=== PATIENT | female | born 1935 | race Caucasian/White ===

== ENCOUNTER → 2017-08-28 | Outpatient (CLI) | payer MEDICARE, OTHER ==
[2017-04-30 10:28] VITALS: BMI 21.2
[~2017-08-28] MED LIST: ACE325 PO; ACET-2031 PO; ACET-2708 PO; AMOX-556 PO; ASCO-599 PO; ASPE325 PO; ASPI-719 PO; ASPI-816 PO; ASPI325T22 PO; ASPI81TA94 PO; ATOR10TA65 PO; ATR10 PO; BETA1TAB44 PO; CALC1CAP19 PO; CALC500T76 PO; CHOL100062 PO; CLAR-1 PO; DIPH0.5D12 IM; DYA PO; ENA10 PO; ENAL-128 PO; ENOX150D3 SQ; ENOX60DI10 SQ; ESOM20CA31 PO; FAMO-67 PO; FAMO20TA9 PO; FISH OIL1 CAP PO; FLU IM; FLU180SY9 IM; GABA-490; GABA-490 PO; GABA-547 PO; GING250C3 PO; GLUC100026 PO; GLUC500C29 PO; GRAP50CA PO; IBUP-1618 PO; LEVO-85 PO; LISI-362 PO; LISI5TAB25 PO; LOR5/325 PO; MAXIDE; MELO-207 PO; MET500 PO; METO-253 PO; METO25TA93 PO; METR-1 PO; METXR500 PO; MULT-1156 PO; MULT1CAP59 PO; NIA100 PO; NIT100 PO; OMEG500C7 PO; OND4 PO; ONDA-2 PO; ONDA4TAB PO; PAN40 PO; PANT40TA65 PO; PNEU0.5D3 IM; PRO25 PO; RANI-324 PO; SCOP1PAT TD; SENN-284 PO; SUCR1TAB85 PO; SULF473O PO; TICA90TA PO; VIT D; WARF-18 PO; WARF10TA29 PO; [UNRECOGNIZED DRUG - OTHER] PO; [UNRECOGNIZED DRUG - OTHER] PO; b complex; calcium; fish oil; mvi; vit C
== END ==
LOC: LAB 12:28
PROVIDERS: ATTEND Internal Medicine
DX: E11.9 Type 2 diabetes mellitus without complications (principal); M85.80 Other specified disorders of bone density and structure, unspecified site; I10 Essential (primary) hypertension
CPT/HCPCS: 36415; 82040; 82247; 82310; 82374; 82435; 82565; 82947; 83036; 84075; 84132; 84155; 84295; 84450; 84460; 84520

== ENCOUNTER → 2017-09-17 | Outpatient (CLI) | payer MEDICARE, OTHER ==
[2017-04-30 10:28] VITALS: BMI 21.2
--- NOTE | 2017-09-17 14:16 | RADIOLOGY IMAGING REPORT ---
[place] [facility] [place] NAME: Jasmin Carreno : 1935 MR: [id number] V: [id number] EXAM DATE: ORDERING PHYSICIAN: MALINI BARRERA TECHNOLOGIST: Location: [facility] Patient: Jasmin Carreno : 1935 Visit/Account:[id number] Date of Sevice: 09/17/2017 BONE MINERAL DENSITY HISTORY: osteopenia, post menopausaul COMPARISON: DEXA examination from 10/05/2012 FINDINGS: LUMBAR SPINE: Bone mineral density (BMD) measured from L1-L4 correlates with a Z-score of -0.7 and a T-score of -2. 9 which is osteoporosis as defined by the World Health Organization. The corresponding risk of fract ure in the lumbar spine is 6-8 times compared with a young adult reference population. This value france s decreased by 8.9% since the prior study. More than 5% change is considered significant. HIP: Bone mineral density (BMD) measured in the left total hip region correlates with a Z-score of 0.0 and a T-score of -2.4 which is osteopenia as defined by the World Health Organization. The correspondin g risk of fracture in the hip is 4-6 times compared with a young adult reference population. This va lue has decreased by 17% since the prior study. More than 5% change is considered significant. Bone mineral density (BMD) measured in the left Femoral Neck region measures 0.796 g/cm2. Correspond ing T score is -1.7, osteopenia IMPRESSION: 1. Lumbar spine: Osteoporosis. There has been significant interval decrease in the bone mineral de nsity since the previous exam. 2. Left Total Hip: Osteopenia. There has been significant interval decrease in the bone mineral de nsity since the previous exam. 3. Left Femoral Neck: Bone Mineral Density is 0.796 g/cm2. Osteopenia The next DEXA scan of this patient should include the following sites: L1-L4 and left hip. FRAX? WHO Fracture Risk Assessment Tool link: <http://www.shef.ac.uk/FRAX/tool.jsp?[email or web address]> PLEASE NOTE: 1) The World Health Organization defines low BMD as follows: T-score Normal > -1 Osteopenia < -1 and > -2.5 Osteoporosis < -2.5 without fractures Established osteoporosis < -2.5 with fractures 2) In general, you may wish to consider: Diagnosis Treatment Follow-up DEXA Normal BMD Prevention 2-3 years Osteopenia Prevention/therapy 1-2 years Osteoporosis Therapy Yearly 3) Fracture risk estimated from the T-score is more accurate for vertebral fractures (often spontane ous) than for hip fractures. Report Dictated By: Dhruv Hopkins MD at 09/17/2017 2:10 PM Report E-Signed By: Dhruv Hopkins MD at 09/17/2017 2:12 PM WSN:[id number]
== END ==
LOC: RAD 07:12
PROVIDERS: ATTEND Internal Medicine
DX: M81.0 Age-related osteoporosis without current pathological fracture (principal); M85.88 Other specified disorders of bone density and structure, other site; Z78.0 Asymptomatic menopausal state
CPT/HCPCS: 77080

== ENCOUNTER 2017-12-20 08:38 | Emergency (ER) | payer MEDICARE, OTHER ==
[2017-04-30 10:28] VITALS: Wt 53.5 kg
[~2017-12-20 08:38] MED LIST changes: -ASPI-816 PO; +ASPI-870 PO; -RANI-324 PO; +RANI-366 PO; -WARF-18 PO; +WARF5TAB23 PO
--- NOTE | 2017-12-20 08:45 | ER Report ---
History and Physical Time Seen By MD: 08:44 HPI/ROS CHIEF COMPLAINT: Vomiting HISTORY OF PRESENT ILLNESS: Patient is an 82-year-old female who reports having nausea with episodes of vomiting over the past week. She denies any abdominal pain. She does report to the epigastric region however and states that "something is wrong". She further admits to having a lot of belching and she did report a dark chocolate stool yesterday morning. Today she metastases to having some bright red blood per rectum and admits having history of hemorrhoids. She admits to a decreased appetite secondary to nausea. She denies any fevers or chills. She denies chest pain or shortness of breath. She denies any urinary burning or hematuria. She denies urinary frequency. Patient does have a prior history of abdominal surgeries which include a hiatal hernia repair as well as a transvaginal hysterectomy. REVIEW OF SYSTEMS: Constitutional: No fever, no chills. Eyes: No discharge. ENT: No sore throat. Cardiovascular: No chest pain, no palpitations. Respiratory: No cough, no shortness of breath. Gastrointestinal: Nausea with vomiting no appreciable abdominal pain Genitourinary: No hematuria. Musculoskeletal: No back pain. Skin: No rashes. Neurological: No headache. Allergies: Coded Allergies: Cephalexin Monohydrate (Verified Allergy, Unknown, VOMITTING HEADACHE, 12/20) Home Meds Active Scripts Ondansetron Hcl (ZOFRAN) 4 Mg Tablet, 4 MG PO Q8H for Nausea, #15 TAB 0 Refills Prov:QUE LANGE MD 12/20/17 Warfarin Sodium (WARFARIN SODIUM) 5 Mg Tablet, 1-1.5 TAB PO QDAY, #135 TAB 3 Refills 5 mg T, Th, S, S, and 7.5 mg M, W, F, or as directed based on INR. Prov:MALINI BARRERA MD 08/28/17 Reported Medications Metoprolol Succinate (METOPROLOL SUCCINATE) 50 Mg Tab.er.24h, 1 TAB PO QDAY, TAB 12/20/17 Lisinopril (LISINOPRIL) 10 Mg Tablet, 1 TAB PO QDAY, TAB 08/28/17 Ranitidine Hcl (ZANTAC) 150 Mg Tablet, 1 TAB PO QDAY, TAB 08/27/16 Beta-Carotene(A) W-C & E/Min (VISION VITAMINS) 1 Each Tablet, 1 TAB PO QDAY 01/19/14 Discontinued Reported Medications Pantoprazole Sodium (PANTOPRAZOLE SODIUM) 40 Mg Tablet.dr, 1 TAB PO QDAY 04/29/17 Discontinued Scripts Metoprolol Tartrate (METOPROLOL TARTRATE) 25 Mg Tablet, 1 TAB PO BID, #60 TAB 6 Refills Prov:MALINI BARRERA MD 09/22/17 Past Medical/Surgical History Past medical history for macular degeneration, history of retinal detachment, history of coronary artery disease with MA in March 2014. Patient had stent to the LAD that was performed in [place]. Past medical history for hypertension, history of pulmonary embolism, history of gastroesophageal reflux disease, history of peptic ulcer disease, history of back pain and arthritis. History of type II diabetes. Hx Smoking: No Smoking Status: Never Smoker Exposure to Second Hand Smoke?: Yes Hx Substance Use Disorder: No Hx Alcohol Use: No Constitutional Vital Sign - Last 24 Hours 12/20/17 12/20/17 12/20/17 12/20/17 08:38 08:44 08:44 09:01 Temp 98.7 Pulse ??? 106 Resp 19 B/P (MAP) 168/107 168/107 (127) 125/72 (89) Pulse Ox 90 O2 Delivery Room Air 12/20/17 12/20/17 12/20/17 12/20/17 09:08 09:30 09:38 10:00 Pulse 89 78 Resp 12 19 B/P (MAP) 153/75 (101) 149/79 (102) Pulse Ox 92 94 12/20/17 12/20/17 12/20/17 12/20/17 10:08 10:30 10:35 11:00 Pulse 83 85 Resp 11 12 B/P (MAP) 141/101 (114) 101/60 (74) Pulse Ox 94 94 12/20/17 12/20/17 12/20/17 12/20/17 11:05 11:30 11:40 12:00 Pulse 80 80 Resp 6 11 B/P (MAP) 115/82 (93) 136/84 (101) Pulse Ox 91 93 12/20/17 12/20/17 12/20/17 12/20/17 12:10 12:15 12:30 12:36 Pulse 82 Resp 10 23 B/P (MAP) 140/93 (109) 136/88 (104) Pulse Ox 94 93 Physical Exam General Appearance: The patient is alert, has no immediate need for airway protection and no signs of toxicity. Eyes: Pupils equal and round no pallor or injection. No jaundice noted ENT, Mouth: Mucous membranes are moist. Patient is edentulous Respiratory: There are no retractions, lungs are clear to auscultation. Cardiovascular: Regular rate and rhythm. Gastrointestinal: Abdomen is soft and non tender, no masses, bowel sounds normal. Neurological: Awake alert Skin: Warm and dry, no rashes. Musculoskeletal: Neck is supple non tender. Extremities are nontender, nonswollen and have full range of motion. Medical Decision Making Data Points Result Diagram: 12/20/17 0912/20/17 09 Laboratory Hematology Test 12/20/17 00:00 12/20/17 09:06 12/20/17 09:42 12/20/17 10:02 Prothrombin Time 18.1 seconds (12.0-14.4) Prothromb Time International Ratio 1.47 Activated Partial Thromboplast Time 26 seconds (23-35) Red Blood Count 5.32 M/uL (4.17-5.56) Mean Corpuscular Volume 91.0 fL (80.0-96.0) Mean Corpuscular Hemoglobin 31.2 pg (26.0-33.0) Mean Corpuscular Hemoglobin Concent 34.2 g/dL (32.0-36.0) Red Cell Distribution Width 14.3 % (11.5-14.5) Mean Platelet Volume 7.2 fL (7.2-11.1) Neutrophils (%) (Auto) 73.2 % (39.4-72.5) Lymphocytes (%) (Auto) 18.3 % (17.6-49.6) Monocytes (%) (Auto) 7.3 % (4.1-12.4) Eosinophils (%) (Auto) 0.8 % (0.4-6.7) Basophils (%) (Auto) 0.4 % (0.3-1.4) Nucleated RBC Relative Count (auto) 0.0 /100WBC Neutrophils # (Auto) 6.2 K/uL (2.0-7.4) Lymphocytes # (Auto) 1.6 K/uL (1.3-3.6) Monocytes # (Auto) 0.6 K/uL (0.3-1.0) Eosinophils # (Auto) 0.1 K/uL (0.0-0.5) Basophils # (Auto) 0.0 K/uL (0.0-0.1) Nucleated RBC Absolute Count (auto) 0.00 K/uL Sodium Level 140 mmol/L (137-145) Potassium Level 4.0 mmol/L (3.5-5.0) Chloride Level 102 mmol/L (98-107) Carbon Dioxide Level 22 mmol/L (22-31) Blood Urea Nitrogen 22 mg/dl (7-18) Creatinine 1.00 mg/dl (0.52-1.04) Glomerular Filtration Rate Calc 53.0 Random Glucose 151 mg/dl (75-110) Calcium Level 10.0 mg/dl (8.4-10.2) Total Bilirubin 0.6 mg/dl (0.2-1.3) Aspartate Amino Transf (AST/SGOT) 24 U/L (0-35) Alanine Aminotransferase (ALT/SGPT) 23 U/L (0-56) Alkaline Phosphatase 75 U/L (0-126) Total Protein 7.0 gm/dl (6.3-8.2) Albumin 3.9 g/dl (3.5-5.0) Lipase 107 U/L (23-300) Helicobacter pylori IgG Antibody Negative (NEGATIVE) Stool Occult Blood (IFOB) Positive (NEGATIVE) Urine Color Yellow Urine Clarity Clear Urine pH 5.0 pH (4.8-9.5) Urine Specific [place] 1.039 Urine Protein 30 mg/dL (NEGATIVE) Urine Glucose (UA) Negative mg/dL (NEGATIVE) Urine Ketones 20 mg/dL (NEGATIVE) Urine Blood Negative (NEGATIVE) Urine Nitrite Negative (NEGATIVE) Urine Bilirubin Negative (NEGATIVE) Urine Urobilinogen Negative mg/dL (0.2-1.9) Urine Leukocyte Esterase Negative (NEGATIVE) Urine RBC None /HPF (0-2/HPF) Urine WBC <1 /HPF (0-5/HPF) Urine Squamous Epithelial Cells None /LPF (NONE-FEW) Urine Bacteria Negative /HPF (NONE-FEW) Urine Mucus Few /HPF (NONE-FEW) Test 12/20/17 12:00 Troponin I 0.044 ng/ml Chemistry Test 12/20/17 00:00 12/20/17 09:06 12/20/17 09:42 12/20/17 10:02 Prothrombin Time 18.1 seconds (12.0-14.4) Prothromb Time International Ratio 1.47 Activated Partial Thromboplast Time 26 seconds (23-35) White Blood Count 8.5 k/uL (4.5-11.0) Red Blood Count 5.32 M/uL (4.17-5.56) Hemoglobin 16.6 g/dL (12.0-16.0) Hematocrit 48.5 % (34.0-47.0) Mean Corpuscular Volume 91.0 fL (80.0-96.0) Mean Corpuscular Hemoglobin 31.2 pg (26.0-33.0) Mean Corpuscular Hemoglobin Concent 34.2 g/dL (32.0-36.0) Red Cell Distribution Width 14.3 % (11.5-14.5) Platelet Count 327 K/uL (150-450) Mean Platelet Volume 7.2 fL (7.2-11.1) Neutrophils (%) (Auto) 73.2 % (39.4-72.5) Lymphocytes (%) (Auto) 18.3 % (17.6-49.6) Monocytes (%) (Auto) 7.3 % (4.1-12.4) Eosinophils (%) (Auto) 0.8 % (0.4-6.7) Basophils (%) (Auto) 0.4 % (0.3-1.4) Nucleated RBC Relative Count (auto) 0.0 /100WBC Neutrophils # (Auto) 6.2 K/uL (2.0-7.4) Lymphocytes # (Auto) 1.6 K/uL (1.3-3.6) Monocytes # (Auto) 0.6 K/uL (0.3-1.0) Eosinophils # (Auto) 0.1 K/uL (0.0-0.5) Basophils # (Auto) 0.0 K/uL (0.0-0.1) Nucleated RBC Absolute Count (auto) 0.00 K/uL Glomerular Filtration Rate Calc 53.0 Calcium Level 10.0 mg/dl (8.4-10.2) Total Bilirubin 0.6 mg/dl (0.2-1.3) Aspartate Amino Transf (AST/SGOT) 24 U/L (0-35) Alanine Aminotransferase (ALT/SGPT) 23 U/L (0-56) Alkaline Phosphatase 75 U/L (0-126) Total Protein 7.0 gm/dl (6.3-8.2) Albumin 3.9 g/dl (3.5-5.0) Lipase 107 U/L (23-300) Helicobacter pylori IgG Antibody Negative (NEGATIVE) Stool Occult Blood (IFOB) Positive (NEGATIVE) Urine Color Yellow Urine Clarity Clear Urine pH 5.0 pH (4.8-9.5) Urine Specific [place] 1.039 Urine Protein 30 mg/dL (NEGATIVE) Urine Glucose (UA) Negative mg/dL (NEGATIVE) Urine Ketones 20 mg/dL (NEGATIVE) Urine Blood Negative (NEGATIVE) Urine Nitrite Negative (NEGATIVE) Urine Bilirubin Negative (NEGATIVE) Urine Urobilinogen Negative mg/dL (0.2-1.9) Urine Leukocyte Esterase Negative (NEGATIVE) Urine RBC None /HPF (0-2/HPF) Urine WBC <1 /HPF (0-5/HPF) Urine Squamous Epithelial Cells None /LPF (NONE-FEW) Urine Bacteria Negative /HPF (NONE-FEW) Urine Mucus Few /HPF (NONE-FEW) Test 12/20/17 12:00 Troponin I 0.044 ng/ml Coagulation Test 12/20/17 00:00 Prothrombin Time 18.1 seconds Prothromb Time International Ratio 1.47 Activated Partial Thromboplast Time 26 seconds Urinalysis Test 12/20/17 10:02 Urine Color Yellow Urine Clarity Clear Urine pH 5.0 pH (4.8-9.5) Urine Specific [place] 1.039 Urine Protein 30 mg/dL (NEGATIVE) Urine Glucose (UA) Negative mg/dL (NEGATIVE) Urine Ketones 20 mg/dL (NEGATIVE) Urine Blood Negative (NEGATIVE) Urine Nitrite Negative (NEGATIVE) Urine Bilirubin Negative (NEGATIVE) Urine Urobilinogen Negative mg/dL (0.2-1.9) Urine Leukocyte Esterase Negative (NEGATIVE) Urine RBC None /HPF (0-2/HPF) Urine WBC <1 /HPF (0-5/HPF) Urine Squamous Epithelial Cells None /LPF (NONE-FEW) Urine Bacteria Negative /HPF (NONE-FEW) Urine Mucus Few /HPF (NONE-FEW) Microbiology Microbiology Date/Time Source Procedure Growth Status 12/20/17 10:02 Cath Urine Urine Culture - Preliminary NO GROWTH AFTER 1 DAY, REINCUBATED Resulted EKG/Imaging EKG Interpretation EKG shows normal sinus rhythm with left axis deviation. There is prior Q waves in leads 3 and aVF which corresponded to an old inferior wall MA. Monitor Interpretation: Normal Sinus Rhythm Imaging FACILITY: [facility] - [place] PATIENT NAME: Jasmin Carreno : 1935 MR: [id number] V: [id number] EXAM DATE: [id number] ORDERING PHYSICIAN: QUE LANGE TECHNOLOGIST: Location[place] [facility] [place] Patient: Jasmin Carreno : 1935 Visit/Account:[id number] Date of Sevice: 12/20/2017 ABDOMEN/PELVIS WITH CONTRAST HISTORY: Vomiting. Not feeling well. TECHNIQUE: CT abdomen and pelvis with intravenous contrast. One of the following dose optimization techniques was utilized in the performance of this exam: Automated exposure control; adjustment of the mA and/ or kV according to the patient's size; or use of an iterative reconstruction technique. Specific details can be referenced in the facility's radiology CT exam operational policy. CONTRAST: 75 mL Isovue-370. COMPARISON: CT chest dated April 29, 2017. FINDINGS: Visualized lung bases: Mild linear scarring within the right lung base. Small hiatal hernia. There is fluid within a patulous distal esophagus. Hepatobiliary: Gallbladder surgically absent. Otherwise negative. Spleen: Negative. Adrenals: Negative. Pancreas: Negative. Kidneys/: Uterus is surgically absent. Otherwise negative. GI: Moderate to advanced descending and sigmoid colon diverticulosis without evidence for diverticulitis. There is advanced diverticulosis within the proximal jejunum with small moderate volume adjacent free air (coronal image 4) . Extending superiorly below the diaphragms. No visualized associated wall thickening or infiltration. Postsurgical changes near the GE junction with recurrent hiatal hernia. Otherwise negative. Appendix is unremarkable. Vessels/spaces/nodes: Mild/moderate volume ascites. Free air, as above. Bones/soft tissues: Degenerative changes within the spine. There is approximately 7 mm anterolisthesis of L4 on L5 IMPRESSION: 1. Pneumoperitoneum which appears to be related to diverticular disease within the proximal small bowel. There is no wall thickening or adjacent inflammatory changes to suggest perforated diverticulitis. No additional potential cause of the pneumoperitoneum is identified. 2. Recurrent small hiatal hernia with fluid and a patulous distal visualized esophagus. 3. Additional incidental/chronic findings, as above. Results were discussed with QUE LANGE at 12/20/2017 10:22 AM. Report Dictated By: Jon Pereira MD at 12/20/2017 10:15 AM Report E-Signed By: Jon Pereira MD at 12/20/2017 10:26 AM WSN:[id number] ED Course/Re-evaluation Clinical Indication for ER IV: Hydration, IV Access ED Course 12/20/2017 11:02:[address] results as well as history, physical exam all pertinent lab data were discussed with the on-call surgeon ; he is aware of the area of pneumoperitoneum seen on CT scan. According to the radiologist there is a CT scan of the abdomen and pelvis from 2013 which showed "free air" but he is unable to visualize the images of the study to compare. Further accordingly on the CT scan there is no other evidence of inflammation to suggest ruptured diverticulitis. Patient's physical exam is completely benign and she has actually no abdominal pain and a normal white count. This was all discussed with , and it is his opinion that this a benign finding at this time. He recommends that the patient follow-up with him this Friday for gastric scope. This was all discussed with the patient who currently feels improved after having some vomiting. She continues to have 0 abdominal pain, with stable vital signs. Her troponin was in the lower end of the indeterminate range so we will be repeating a 3 hour troponin at noon. If all this is normal we will discharge the patient home ensuring that she is on a proton pump inhibitor. Patient and daughter were updated no questions or concerns at this time. Re-evaluation 12/20/2017 12:32:29 pm patient feeling improved. Repeat troponin is unchanged. Plan will be discharge home at this time Decision to Disposition Date: December 20, 2017 Decision to Disposition Time: 12:32 Depart Departure Latest Vital Signs Vital Signs Date Time Temp Pulse Resp B/P (MAP) Pulse Ox O2 Delivery O2 Flow Rate FiO2 12/20/17 12:36 136/88 (104) 12/20/17 12:15 23 93 12/20/17 12:10 82 5/5/18 08:44 98.7 Room Air Impression: Primary Impression: Vomiting Condition: Improved Disposition: HOME OR SELF-CARE Referrals: MALINI BARRERA MD (PCP) MANDA ALDANA MD Call the office of Friday for same-day appointment for further evaluation of your vomiting. New Scripts Ondansetron Hcl (ZOFRAN) 4 Mg Tablet 4 MG PO Q8H for Nausea, #15 TAB 0 Refills Prov: QUE LANGE MD 12/20/17 Patient Instructions: Acute Nausea and Vomiting (ED) Additional Instructions: You should schedule a follow-up appointment on Friday with Dr. Aldana by calling 1st thing Friday. Your provided with his contact information. If at any time your symptoms worsen you should return immediately to the emergency department for further evaluation. Problem Qualifiers Primary Impression: Vomiting Vomiting type: unspecified Vomiting Intractability: non-intractable Nausea presence: with nausea Qualified Codes: R11.2 - Nausea with vomiting, unspecified QUE LANGE MD December 20, 2017 08:45
[2017-12-20] MEDS ORDERED: NS(*) 0.9% 500 ML BAG 500 ML IV ONE (08:57)
[2017-12-20] MEDS ORDERED: ONDANSETRON 4 MG/2 ML VIAL IVP ONE ×2 (09:00→12:25)
[2017-12-20] MEDS ORDERED: IOPAMIDOL 76% 75 ML INFUS BTL 75 ML ONE (09:12)
[2017-12-20] MEDS ORDERED: METO50TA19 PO (09:13)
[2017-12-20] MEDS ORDERED: NS 0.9% 150 ML BAG 150 ML ONE (09:13)
[2017-12-20 09:16] LABS: PLATELET COUNT, AUTOMATED 327 K/uL (150-450)
--- NOTE | 2017-12-20 09:23 | EKG ---
FACILITY: [facility] PATIENT NAME: DONAL IBANEZ : [id number] MR: [id number] V: [id number] EXAM DATE: ORDERING PHYSICIAN: QUE LANGE TECHNOLOGIST: SHABNAM Test Reason : NAUSEA Blood Pressure : / mmHG Vent. Rate : 085 BPM Atrial Rate : 085 BPM P-R Int : 168 ms QRS Dur : 072 ms QT Int : 384 ms P-R-T Axes : 026 -55 011 degrees QTc Int : 456 ms Sinus rhythm Left axis deviation Decreased R wave progression Possible previous inferior infarct Abnormal ECG Confirmed by MARTY WOODS ([id number]) on 12/20/2017 2:03:15 PM Referred By: YEIMI Confirmed By:MARTY WOODS
[2017-12-20] MEDS ORDERED: FAMOTIDINE(*) 20MG/50ML PREMIX 50 ML IVPB ONE (09:35)
[2017-12-20 09:36] LABS: INR 1.47
--- NOTE | 2017-12-20 10:29 | RADIOLOGY IMAGING REPORT ---
FACILITY: [facility] - [place] PATIENT NAME: Jasmin Carreno : 1935 MR: [id number] V: [id number] EXAM DATE: ORDERING PHYSICIAN: QUE LANGE TECHNOLOGIST: Location: [facility] [place] Patient: Jasmin Carreno : 1935 Visit/Account:[id number] Date of Sevice: 12/20/2017 ABDOMEN/PELVIS WITH CONTRAST HISTORY: Vomiting. Not feeling well. TECHNIQUE: CT abdomen and pelvis with intravenous contrast. One of the following dose optimization techniques was utilized in the performance of this exam: Autom ated exposure control; adjustment of the mA and/or kV according to the patient's size; or use of an i terative reconstruction technique. Specific details can be referenced in the facility's radiology C T exam operational policy. CONTRAST: 75 mL Isovue-370. COMPARISON: CT chest dated April 29, 2017. FINDINGS: Visualized lung bases: Mild linear scarring within the right lung base. Small hiatal hernia. There is fluid within a patulous distal esophagus. Hepatobiliary: Gallbladder surgically absent. Otherwise negative. Spleen: Negative. Adrenals: Negative. Pancreas: Negative. Kidneys/: Uterus is surgically absent. Otherwise negative. GI: Moderate to advanced descending and sigmoid colon diverticulosis without evidence for diverticul itis. There is advanced diverticulosis within the proximal jejunum with small moderate volume adjacen t free air (coronal image 4). Extending superiorly below the diaphragms. No visualized associated wal l thickening or infiltration. Postsurgical changes near the GE junction with recurrent hiatal hernia. Otherwise negative. Appendix is unremarkable. Vessels/spaces/nodes: Mild/moderate volume ascites. Free air, as above. Bones/soft tissues: Degenerative changes within the spine. There is approximately 7 mm anterolisthes is of L4 on L5 IMPRESSION: 1. Pneumoperitoneum which appears to be related to diverticular disease within the proximal small bow el. There is no wall thickening or adjacent inflammatory changes to suggest perforated diverticulitis . No additional potential cause of the pneumoperitoneum is identified. 2. Recurrent small hiatal hernia with fluid and a patulous distal visualized esophagus. 3. Additional incidental/chronic findings, as above. Results were discussed with QUE LANGE at 12/20/2017 10:22 AM. Report Dictated By: Jon Pereira MD at 12/20/2017 10:15 AM Report E-Signed By: Jon Pereira MD at 12/20/2017 10:26 AM WSN:[id number]
[2017-12-20] MEDS ORDERED: ONDA4TAB97 PO (12:33)
[2017-12-20 12:36] VITALS: BP 136/88
[2017-12-22] MEDS ORDERED: [UNRECOGNIZED DRUG - CODE] PO (16:57)
== END 2017-12-20 12:44 | disposition home or self-care (01) ==
LOC: ER 08:47
DX: R11.2 Nausea with vomiting, unspecified (principal)
CPT/HCPCS: 36415; 74177; 81001; 82274; 83690; 84484; 85025; 85610; 85730; 86677; 86850; 86900; 86901; 87088; 93005; 96361; 96365; 96375; 96376; 99284; A4353; J2405; J3490; J7040; Q9967; 82040; 82247; 82310; 82374; 82435; 82565; 82947; 84075; 84132; 84155; 84295; 84450; 84460; 84520

== ENCOUNTER 2017-12-23 01:22 | Day surgery (SDC) | payer MEDICARE, OTHER ==
[2017-04-30 10:28] VITALS: Ht 157.5 cm; Wt 52.6 kg
[~2017-12-23] VITALS: Ht 157.5 cm; Wt 52.6 kg
[~2017-12-23 01:22] MED LIST changes: +METO50TA19 PO; +ONDA4TAB97 PO; +[UNRECOGNIZED DRUG - CODE] PO
--- NOTE | 2017-12-23 07:00 | Post Operative Progress Note ---
Post Operative Progress Note Date: December 23, 2017 Time: 12:28 Surgeon: joni Anesthesia: dr naik Pre-Op Diagnosis: epigastric pain Post-Op Diagnosis: distal esophagitis Procedure(s): egd with biopsy MANDA FAN MD December 23, 2017 07:00
[2017-12-23] MEDS ORDERED: PANT40TA65 PO (07:01)
--- NOTE | 2017-12-23 07:02 | Short(Outpt) Discharge Summary ---
Discharge Summary Reason for Hosp/Final Diag: (1) Epigastric abdominal pain Hospital Course & Plan: distal esophagitis Departure Discharge to: Home Discharge Instructions Home Meds Active Scripts Pantoprazole Sodium (PANTOPRAZOLE SODIUM) 40 Mg Tablet.dr, 40 MG PO QDAY for 60 Days, #60 TAB.SR 3 Refills Prov:MANDA FAN MD 12/23/17 Warfarin Sodium (WARFARIN SODIUM) 5 Mg Tablet, 1-1.5 TAB PO QDAY, #135 TAB 3 Refills 5 mg T, Th, S, S, and 7.5 mg M, W, F, or as directed based on INR. Prov:MALINI BARRERA MD 08/28/17 Reported Medications Asa/Acetaminophn/Mag/Alh/Caff (VANQUISH CAPLET) 1 Each Tablet, 1 EACH PO DAILY 12/22/17 Lisinopril (LISINOPRIL) 10 Mg Tablet, 1 TAB PO QDAY, TAB 08/28/17 Ranitidine Hcl (ZANTAC) 150 Mg Tablet, 1 TAB PO QDAY, TAB 08/27/16 Discontinued Reported Medications Metoprolol Succinate (METOPROLOL SUCCINATE) 50 Mg Tab.er.24h, 1 TAB PO QDAY, TAB 12/20/17 Beta-Carotene(A) W-C & E/Min (VISION VITAMINS) 1 Each Tablet, 1 TAB PO QDAY 01/19/14 Pantoprazole Sodium (PANTOPRAZOLE SODIUM) 40 Mg Tablet.dr, 1 TAB PO QDAY 04/29/17 Discontinued Scripts Ondansetron Hcl (ZOFRAN) 4 Mg Tablet, 4 MG PO Q8H for Nausea, #15 TAB 0 Refills Prov:QUE LANGE MD 12/20/17 Metoprolol Tartrate (METOPROLOL TARTRATE) 25 Mg Tablet, 1 TAB PO BID, #60 TAB 6 Refills Prov:MALINI BARRERA MD 09/22/17 Diet: Regular Activity: As Tolerated MANDA FAN MD December 23, 2017 07:02
[2017-12-23] MEDS ORDERED: PROPOFOL EMUL(*) 10MG/ML 20 ML 20 ML ONE (09:06)
[2017-12-23] MEDS ORDERED: LIDOCAINE/SOD BICARB 8.4% SYR ID ONE (10:25)
[2017-12-23] MEDS ORDERED: NORMOSOL R SOLN(*) 1000 ML BAG 1,000 ML IV PRN (10:25)
[2017-12-23 10:35] VITALS: BP 157/107
[2017-12-23 12:10] VITALS: BP 121/73
[2017-12-23 13:05] VITALS: BP 151/75
[2017-12-23 13:20] VITALS: BP 143/92
[2017-12-23 13:21] VITALS: BP 126/79
--- NOTE | 2017-12-23 18:43 | OPERATIVE REPORT 1 ---
EVENT DATE: December 23, 2017 SURGEON: Abel Aldana MD ANESTHESIOLOGIST: Smith Coughlin MD ANESTHESIA: Sedation. PREOPERATIVE DIAGNOSIS Epigastric pain. POSTOPERATIVE DIAGNOSIS Distal esophagitis. PROCEDURE PERFORMED Esophagogastroduodenoscopy with biopsy of distal esophagus. DESCRIPTION OF PROCEDURE Patient was placed in left lateral decubitus position and given intravenous sedation. Flexible gastroscope was inserted and advanced. The GE junction appeared to be about 30 cm. The esophagus was a little tortuous, and there appeared to be some inflammatory tissue and granulation tissue in the distal esophagus. We were able to navigate this without any resistance. I could not perceive a stricture. We entered the stomach, passed through the pylorus into the second and third portions of the duodenum which were normal. The duodenal bulb was normal. Pylorus was normal. Antrum was normal. In the body, I could not identify any abnormalities. We retroflexed the scope in the upper stomach and looked up the esophagus. No stricture or ulceration was noted. Scope was slowly withdrawn. We then took some biopsies of the distal esophagus where that inflammatory tissue was. It did not appear to be tumor. The procedure was terminated. [facility]
== END 2017-12-23 13:40 | disposition home or self-care (01) ==
LOC: OR 01:22
PROVIDERS: ATTEND Surgery
DX: R10.13 Epigastric pain (principal)
CPT/HCPCS: 43235; 88305; 88313; J2704

== ENCOUNTER 2018-02-26 11:15 | Outpatient (RCR) | payer MEDICARE, OTHER ==
[2017-04-30 10:28] VITALS: BMI 21.2
--- NOTE | 2018-02-10 16:21 | PT INITIAL EVALUATION ---
MEDICAL DIAGNOSIS: M25.512, W18.00XA, M25.619 TREATMENT DIAGNOSIS: same DATE OF ONSET: 01/21/18 SUBJECTIVE: Jasmin Carreno presents to physical therapy with complaints of L shoulder pain that started after a fall on the 21 of January. She reports that she was on a family vacation when it happened. She reports that her physician reports that she feels like she might have cracked or broken ribs along with a potential RTC tear. She rates her shoulder pain to be 1-2/10. She reports that her shoulder becomes worse with turning, move shoulder in all directions, and in/out of bed and rates her pain to be 3/10. She reports that it feels better when a hot water bottle is placed on the L shoulder. Furthermore, she reports that she had blood clots in her lungs prior to leaving for the trip and is currently being managed. She reports that she wants to learn how to do her home exercise program and then perform it at home as quick as possible. Pain location is L anterior shoulder pain radiating down lateral shoulder. Pain scale is 2 on a ten point pain scale. REHAB PROBLEM LIST: Increased Pain Decreased ROM Decreased Strength Decreased Endurance Decreased Function Decreased ADL's PREVIOUS MEDICAL HISTORY: See EMR OCCUPATION: Retired OBJECTIVE: Posture: She demonstrates B rounded shoulders, increased thoracic kyphosis, decreased lumbar lordosis. ROM: AROM of L shoulder: abduction: 90 deg, flexion: 120 deg, ER: 50% of motion as compared to R shoulder, IR: 90 deg. PROM of L shoulder: flexion: 170 deg, abduction: 150 deg, ER: 45 deg, IR: 90 deg. She demonstrated painful end feels with all motions except for IR. Strength: L shoulder: flexion: strong and painful, abduction: strong and painful , scaption, strong and painful, ER: strong and painful, IR: 4/5 with no pain. Palpation: TTP: bicipital groove and insertional point of supraspinatus Special Tests: (+) yoaguilar, Sherice, speeds test, open can test. (-) for full RTC tear Mobility: Independent Balance: Will test in the future ASSESSMENT: Jasmin will benefit from skilled physical therapy to improve function and QOL. Based on the examination, her signs and symptoms are consistent with RTC involvement specially the supraspinatus, infraspinatus, and teres minor along with LHB, however, she was strong and painful with each structure so it appears that physical therapy is indicated unless she is currently compensating with other musculature hiding a potential full RTC tear. If she does not improve within the next two weeks, we will refer back to physician for potential imaging. Short Term Goals 2 weeks: Pt will be independent on her home exercise program. 2 weeks: Pt will demonstrate full PROM in all directions with normal end feels. Patient's Goals improve shoulder motion and strength and learn home exercises she can do at home PLAN: Patient to be seen for Manual Therapy/STM/MET Strengthening/condition Range of Motion Spinal Stabilization Work Hardening/Cond Stretching Neuromuscular Re-ed Closed Chain Program Posture/Body mechanics Home Exercise Program Therapeutic Activities 2x/Week for 2 Weeks If you have any questions, comments, or concerns about this report or plan, please contact me at . Thank you, Thony Ching, PT, DPT [facility]
[2018-03-02] MEDS ORDERED: LISI-362 PO (13:25)
[2018-03-03] MEDS ORDERED: LISI-362 PO (10:44)
--- NOTE | 2018-03-11 08:41 | PT PLAN OF CARE ---
Physician: Sunil Romero MD Patient is being seen: 2x/week Therapist: Thony Ching, PT, DPT Medical Diagnosis: M25.512, W18.00XA, M25.619 Treatment Diagnosis: same Date of Onset: 01/21/18 Date of Initial Evaluation: 02/10/18 Date patient was last seen: 02/26/18 Number of treatments: 5 Number of cancellations/No shows: 0 INTERVENTIONS: Manual Therapy/STM/MET Strengthening/condition Range of Motion Spinal Stabilization Work Hardening/Cond Stretching Neuromuscular Re-ed Closed Chain Program Posture/Body mechanics Home Exercise Program Therapeutic Activities GOALS: 2 weeks: Pt will be independent on her home exercise program. MET 2 weeks: Pt will demonstrate full PROM in all directions with normal end feels. MET PATIENT'S GOAL: improve shoulder motion and strength and learn home exercises she can do at home MET Status of Patient's Goals: MET Patient Compliance: Good Prognosis: Good Reasons for continuing therapy: She has progressed well within PT with improvements in full PROM-AAROM with normal end feels; however, she continues to struggle with full AROM; however, she is independent on her home exercise program that will allow her to achieve full AROM and return to full function as a result. She feels like she is independent on her program and would like to be discharged from formal PT. Posture: She demonstrates B rounded shoulders, increased thoracic kyphosis, decreased lumbar lordosis. ROM: AROM of L shoulder: abduction: 90 deg, flexion: 165 deg, ER: 90 deg , IR: 90 deg. PROM of L shoulder: flexion: 175 deg, abduction: 175 deg, ER: 90 deg, IR: 90 deg. She demonstrated painful end feels with all motions except for IR. Strength: L shoulder: flexion: strong and painful, abduction: strong and painful , scaption, strong and painful, ER: strong and painful, IR: 4/5 with no pain. Palpation: TTP: bicipital groove and insertional point of supraspinatus Special Tests: (+) yocums, hawkings-kennedys, speeds test, open can test. (-) for full RTC tear Mobility: Independent If you have any questions, please contact me at [phone]. Thank you, Thony Ching, PT, DPT [facility]
== END 2018-02-26 18:00 | disposition home or self-care (01) ==
LOC: PT 11:15
PROVIDERS: ATTEND Internal Medicine
DX: M25.512 Pain in left shoulder (principal); M25.612 Stiffness of left shoulder, not elsewhere classified; W18.00XA Striking against unspecified object with subsequent fall, initial encounter
CPT/HCPCS: 97161

== ENCOUNTER → 2018-03-03 | Outpatient (CLI) | payer MEDICARE, OTHER ==
[2017-04-30 10:28] VITALS: BMI 21.2
== END ==
LOC: LAB 11:11
PROVIDERS: ATTEND Internal Medicine
DX: I10 Essential (primary) hypertension (principal); E11.9 Type 2 diabetes mellitus without complications
CPT/HCPCS: 36415; 82040; 82247; 82310; 82374; 82435; 82565; 82947; 83036; 84075; 84132; 84155; 84295; 84450; 84460; 84520

== ENCOUNTER → 2018-09-01 | Outpatient (CLI) | payer MEDICARE, OTHER ==
[2017-04-30 10:28] VITALS: BMI 21.2
[~2018-09-01] MED LIST changes: +BLOO-1318 MC; +FLU180SY11 IM; +THREONINE PO; +VIT-9 PO
== END ==
LOC: LAB 11:59
PROVIDERS: ATTEND Internal Medicine
DX: E11.9 Type 2 diabetes mellitus without complications (principal); I10 Essential (primary) hypertension
CPT/HCPCS: 36415; 82040; 82247; 82310; 82374; 82435; 82565; 82947; 83036; 84075; 84132; 84155; 84295; 84450; 84460; 84520

== ENCOUNTER → 2018-09-07 | Outpatient (CLI) | payer MEDICARE, OTHER ==
[2017-04-30 10:28] VITALS: BMI 21.2
[~2018-09-07] MED LIST changes: +GADOBENATE 529MG/1ML 15ML VIAL IVP ONE
--- NOTE | 2018-09-07 11:00 | RADIOLOGY IMAGING REPORT ---
FACILITY: [facility] PATIENT NAME: Jasmin Carreno : 1935 MR: [id number] V: [id number] EXAM DATE: ORDERING PHYSICIAN: MALINI BARRERA TECHNOLOGIST: Location: [facility] - [place] Patient: Jasmin Carreno : 1935 Visit/Account:[id number] Date of Sevice: 09/07/2018 Study: MRI of the brain without and with gadolinium contrast. Indication: Dizziness, left ear tinnitus, exotropia Comparison study: None Contrast used: 12 mL MultiHance gadolinium contrast Technique: Multiplanar MRI sequences were obtained through the brain before and after the administrat ion of gadolinium contrast. The examination demonstrates no evidence of acute intracranial hemorrhage. There is no evidence of h ydrocephalus. 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 There are patchy areas of high T2-weighted signal present within the supratentorial white matter. The se are consistent with areas of chronic ischemia. There is mild atrophy present. There is no evidence of cerebellopontine angle mass. There is no abnormal mass or contrast enhancemen t within the internal auditory canals. The 7th and 8th cranial nerve bundles are unremarkable bilater ally. 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 This may be responsible for the patient's tinnitus. The pituitary gland is unremarkable in appearance. There is no evidence of abnormality of the pineal gland. A diffusion-weighted sequence was performed and demonstrates no evidence of active ischemia. There is no evidence of active infarct The orbits are unremarkable. The paranasal sinuses are unremarkable Following the administration of gadolinium contrast, there is no abnormal intracranial contrast enhan cement. IMPRESSION: No acute intracranial abnormality identified. 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 There is a vessel which appears to be the anterior inferior cerebellar artery which crosses the 7th a nd 8th cranial nerve bundles at the ostium of the left internal auditory canal. This may be responsib le for the patient's tinnitus. Report Dictated By: Juan David Davis at 09/07/2018 10:46 AM Report E-Signed By: Juan David Davis at 09/07/2018 10:51 AM WSN:[id number]
== END ==
LOC: MRI 03:46
PROVIDERS: ATTEND Internal Medicine
DX: G96.0 Cerebrospinal fluid leak (principal)
CPT/HCPCS: 70553; A9577

== ENCOUNTER 2018-11-17 10:18 | Outpatient (RCR) | payer MEDICARE, OTHER ==
[2017-04-30 10:28] VITALS: BMI 21.2
[~2018-11-17 10:18] MED LIST changes: -DIPH0.5D12 IM; +DIPH0.5S2 IM; -GADOBENATE 529MG/1ML 15ML VIAL IVP ONE; -RANI-366 PO; +RANI-54 PO; -SULF473O PO; +SULF473O2 PO
--- NOTE | 2018-11-17 13:33 | PT INITIAL EVALUATION ---
MEDICAL DIAGNOSIS: dizziness, balance problem TREATMENT DIAGNOSIS: same DATE OF ONSET: 06/06/19 SUBJECTIVE: Jasmin Carreno presents to physical therapy with complaints of dizziness and balance problems that started in the middle to end of May 2019. She reports that she had a clicking and buzzing noise in her R and L ears. She also reports that she felt like she was spinning especially with quick movements. She reports that it has gotten a lot better over the last two weeks and no longer feels the spinning or buzzing/clicking in her B ears. She reports that she would like to be given exercises so that she can get rid of the spinning if it ever comes back. REHAB PROBLEM LIST: Decreased Balance Decreased Gait PREVIOUS MEDICAL HISTORY: See EMR OCCUPATION: Retired RN OBJECTIVE: Special Tests: Special Tests: (-) OCULOMOTOR/VESTIBULAR TESTING: Spontaneous Nystagmus: Absent VOR Head Thrust (horizontal canal function): R: Negative, L: Negative Gaze- Evoked Nystagmus with fixation present:Absent VOR Head Thrust (posterior canal function): R: negative, L: negative Posterior Horizontal Head-Shaking Nystagmus ( - ) Gaze-Evoked Nystagmus with fixation suppressed: absent Smooth Pursuit Saccades VOR Cancellation: Normal POSITIONING TEST: Left Hallpike - Right Hallpike - Roll Test - ASSESSMENT: She did not demonstrate any positive tests during the session. She is independent with her exercise to prevent the spinning if it returns. She is independent with her home exercise program and will not return to physical therapy unless it comes back. Rosana Wilcox, PAC signature DATE: If you have any questions, comments, or concerns about this report or plan, please contact me at . Thank you, Thony Ching, PT, DPT [facility]
== END 2019-02-15 ==
LOC: PT 10:18
PROVIDERS: ATTEND Physician Assistant
DX: R42 Dizziness and giddiness (principal); R26.89 Other abnormalities of gait and mobility
CPT/HCPCS: 97161